=== PATIENT | female | born 1970 | race Caucasian/White ===

== ENCOUNTER 2023-03-16 05:19 | Day surgery (SDC) | payer OTHER ==
[2023-03-12 11:11] VITALS: BMI 23.6
[2023-03-16] MEDS ORDERED: IBUPROFEN 600 MG TABLET (FP) PO PRN (07:36)
[2023-03-16] MEDS ORDERED: IBUPROFEN 800 MG/8 ML IJ IVPB PRN (07:36)
[2023-03-16] MEDS ORDERED: oxyCODONE HCL 5 MG TABLET PO PRN (09:34)
[2023-03-16] MEDS ORDERED: ONDANSETRON 4 MG/2 ML VIAL IVPUSH PRN (09:34)
[2023-03-16] MEDS ORDERED: FENTANYL CITRATE/PF 50 MCG/ML VIAL ONE ×2 (10:07→10:13)
[2023-03-16] MEDS ORDERED: MIDAZOLAM HCL 2 MG/2 ML SINGLE DOSE VIAL ONE (10:07)
[2023-03-16] MEDS ORDERED: ceFAZolin SODIUM 1 GM VIAL IVPB ONE (10:20)
[2023-03-16] MEDS ORDERED: ROCURONIUM BROMIDE 50 MG/5 ML SYRINGE ONE (10:22)
[2023-03-16] MEDS ORDERED: DEXAMETHASONE SOD PHOSPHATE 4 MG/1 ML VIAL ONE (10:24)
[2023-03-16] MEDS ORDERED: ONDANSETRON 4 MG/2 ML VIAL ONE (10:24)
[2023-03-16] MEDS ORDERED: LIDOCAINE HCL/PF 2% SDV 5ML VIAL ONE (10:24)
[2023-03-16] MEDS ORDERED: ceFAZolin SODIUM 1 GM VIAL ONE (10:24)
[2023-03-16] MEDS ORDERED: PROPOFOL 20 ML ONE (10:36)
[2023-03-16] MEDS ORDERED: NEOSTIGMINE METHYLSULFATE 0.5 MG/1 ML - 10 ML MDV ONE (11:05)
[2023-03-16] MEDS ORDERED: IBUPROFEN 800 MG/8 ML IJ IVPB ONE (12:10)
[2023-03-16 13:37] VITALS: RESP 18
[2023-03-16 15:02] VITALS: BP 115/64; PULSE 88; TEMP 96.2
== END 2023-03-16 14:10 | disposition home or self-care (01) ==
LOC: JASU-SURG 05:19
PROVIDERS: ATTEND Obstetrics & Gynecology
PROC: 0UT74ZZ Resection of Bilateral Fallopian Tubes, Percutaneous Endoscopic Approach (ICD-10-PCS; principal; 2023-03-16 10:00)
DX: Z30.2 Encounter for sterilization (principal)
CPT/HCPCS: 81025; 88305-TC; 94760